=== PATIENT | female | born 2000 | race Caucasian/White ===

== ENCOUNTER 2023-01-02 10:02 | Emergency (ER) | payer OTHER ==
[2023-01-02 10:18] VITALS: BP 109/65; PULSE 60; RESP 18; TEMP 98
[2023-01-02 10:45] LABS: Basophils % (A) 1 %; Eosinophils # (A) 0.3 k/uL (0-0.7); Eosinophils % (A) 3 %; HCT 42.6 % (34.0-46.0); HGB 14.4 gm/dL (11.4-16.0); Lymphocytes # (A) 1.7 k/uL (1.0-4.8); Lymphocytes % (A) 23 %; MCH 32.4 pg (25.0-35.0); MCHC 33.9 g/dL (31.0-37.0); MCV 95.7 fL (80.0-100.0); Mean Platelet Volume 7.8; Monocytes # (A) 0.3 k/uL (0-1.0); Monocytes % (A) 4 %; Neutrophils # (A) 4.9 k/uL (1.3-7.7); Neutrophils % (A) 67 %; Platelet Count 197 k/uL (150-450); RBC 4.45 m/uL (3.80-5.40); RDW 12.6 % (11.5-15.5); WBC 7.3 k/uL (3.8-10.6)
[2023-01-02 11:09] LABS: ALT 16 U/L (4-34); AST 22 U/L (14-36); African American GFR (CKD) >90 (>60 ml/min/1.73 sqM); Albumin 4.6 g/dL (3.5-5.0); Alkaline Phosphatase 78 U/L (38-126); Anion Gap 9 mmol/L; Blood Urea Nitrogen 20 mg/dL (7-17); Calcium 9.3 mg/dL (8.4-10.2); Carbon Dioxide 24 mmol/L (22-30); Chloride 107 mmol/L (98-107); Glucose 99 mg/dL (74-99); Non-African American GFR(CKD) >90 (>60 ml/min/1.73 sqM); Potassium 4.1 mmol/L (3.5-5.1); Sodium 140 mmol/L (137-145); Total Bilirubin 0.5 mg/dL (0.2-1.3); Total Protein 7.4 g/dL (6.3-8.2)
--- NOTE | 2023-01-02 11:18 | ED ---
Abdominal Pain HPI - General Source: patient Mode of arrival: ambulatory <Darshan Aguilar - Last Filed: 01/02/23 11:18> - General Source: patient, RN notes reviewed, old records reviewed - History of Present Illness -: week(s) (1) Location: diffuse Radiation: back Severity scale (1-10): 0 Consistency: intermittent, now resolved Worsens With: eating Associated Symptoms: other (pale stools) <Owen Weaver - Last Filed: 01/02/23 16:45> - General Chief Complaint: Abdominal Pain Stated Complaint: abd pain Time Seen by Provider: 01/02/23 11:54 - History of Present Illness Initial Comments: 22-year-old female presents to ED with a chief complaint of abdominal pain. Patient states that she has had intermittent upper abdominal pain and nausea for the past 3 years recently worsening severity and frequency. Patient states that she feels these symptoms every time she eats. No urinary complaints. Quicknote performed, verbally signed Darshan Aguilar PA-C (Darshan Aguilar) This is a nontoxic-appearing 22-year-old female presents to the emergency room with diffuse abdominal pain on and off for the past 3 years. Patient states that over the past week it has been worse. States that when she eats she feels bloated. Also noticed that her stools have been pale. No fevers but does feel flushed. No concern for . No dysuria. No vaginal bleeding. At this time the pain has resolved. Denies any medical history. No medicines on a daily basis. (Owen Weaver) - Related Data Previous Rx's Medication Instructions Recorded Dicyclomine [Bentyl] 20 mg PO TID #30 tablet 01/02/23 Allergies Allergy/AdvReac Type Severity Reaction Status Date / Time No Known Allergies Allergy Verified 01/02/23 10:18 Review of Systems ROS Other: All systems not noted in ROS Statement are negative. <Darshan Aguilar - Last Filed: 01/02/23 11:18> ROS Other: All systems not noted in ROS Statement are negative. <Owen Weaver - Last Filed: 01/02/23 16:45> ROS Statement: Those systems with pertinent positive or pertinent negative responses have been documented in the HPI. Past Medical History Past Medical History: No Reported History History of Any Multi-Drug Resistant Organisms: None Reported Additional Past Surgical History / Comment(s): Nose Sx Past Psychological History: No Psychological Hx Reported Smoking Status: Never smoker Past Alcohol Use History: None Reported Past Drug Use History: Marijuana <LaurenAuroraDarshan - Last Filed: 01/02/23 11:18> General Exam Limitations: no limitations General appearance: alert, in no apparent distress Eye exam: Present: normal appearance Neck exam: Present: normal inspection Respiratory exam: Present: normal lung sounds bilaterally Cardiovascular Exam: Present: regular rate, normal rhythm Extremities exam: Present: normal inspection Back exam: Present: normal inspection Neurological exam: Present: alert, oriented X3 <LaurenDarshan - Last Filed: 01/02/23 11:18> General appearance: alert, in no apparent distress ENT exam: Present: mucous membranes moist Neck exam: Present: full ROM. Absent: tenderness, meningismus Respiratory exam: Absent: respiratory distress, accessory muscle use GI/Abdominal exam: Present: soft, normal bowel sounds. Absent: distended, tenderness, guarding, rebound, rigid Extremities exam: Present: normal capillary refill. Absent: pedal edema, calf t enderness Psychiatric exam: Present: normal affect, normal mood Skin exam: Present: warm, dry, normal color. Absent: cyanosis, diaphoretic, petechiae, pallor <Owen Weaver - Last Filed: 01/02/23 16:45> Course Vital Signs 01/02/23 10:13 Temperature 98 F Pulse Rate 60 Respiratory 18 Rate Blood Pressure 109/65 O2 Sat by Pulse 99 Oximetry Medical Decision Making - Lab Data Result diagrams: 01/02/23 10:31 01/02/23 10:31 <Darshan Aguilar - Last Filed: 01/02/23 11:18> - Lab Data Result diagrams: 01/02/23 10:31 01/02/23 10:31 <Owen Weaver - Last Filed: 01/02/23 16:45> - Medical Decision Making Was pt. sent in by a medical professional or institution (, PA, DRYWALL TAPER HELPER, urgent care, hospital, or group home...) When possible be specific @ -No Did you speak to anyone other than the patient for history (EMS, parent, family, police, friend...)? What history was obtained from this source @ -No Did you review nursing and triage notes (agree or disagree)? Why? @ -I reviewed and agree with nursing and triage notes Were old charts reviewed (outside hosp., previous admission, EMS record, old EKG, old radiological studies, urgent care reports/EKG's, group home records)? Report findings @ -No old charts were reviewed Differential Diagnosis (chest pain, altered mental status, abdominal pain women, abdominal pain men, vaginal bleeding, weakness, fever, dyspnea, syncope, headache, dizziness, GI bleed, back pain, seizure, CVA, palpatations, mental health, musculoskeletal)? @ -Differential Abdominal Pain Women: Appendicitis, Cholecystitis, diverticulosis, ischemic bowel, pancreatitis, hepatitis, UTI, gastroenteritis, AAA, incarcerated hernia, bowel obstruction, constipation, inflammatory bowel, hepatitis, peptic ulcer disease, splenic infarction, perforated viscus, vulvitis, ovarian torsion, PID, kidney stone, placenta abruption, this is not an all-inclusive list EKG interpreted by me (3pts min.). @ -n/a X-rays interpreted by me (1pt min.). @ -None done CT interpreted by me (1pt min.). @ -None done U/S interpreted by me (1pt. min.). @ -Ultrasound was considered however patient has no pain at this time. Ongoing for 3 years. Labs are unremarkable. Directed to follow up with gastroenterology. What testing was considered but not performed or refused? (CT, X-rays, U/S, labs)? Why? @ -None What meds were considered but not given or refused? Why? @ -None Did you discuss the management of the patient with other professionals (professionals i.e. , PA, DRYWALL TAPER HELPER, lab, RT, psych nurse, social services analyst, snowboarding instructor, teacher, tax revenue officer, case repairer)? Give summary @ -No Was smoking cessation discussed for >3mins.? @ -No Was critical care preformed (if so, how long)? @ -No Were there social determinants of health that impacted care today? How? (Homelessness, low income, unemployed, alcoholism, drug addiction, transportation, low edu. Level, literacy, decrease access to med. care, senior living, rehab)? @ -No Was there de-escalation of care discussed even if they declined (Discuss DNR or withdrawal of care, Hospice)? DNR status @ -No What co-morbidities impacted this encounter? (DM, HTN, Smoking, COPD, CAD, Cancer, CVA, ARF, Chemo, Hep., AIDS, mental health diagnosis, sleep apnea, morbid obesity)? @ -None Was patient admitted / discharged? Hospital course, mention meds given and route, prescriptions, significant lab abnormalities, going to OR and other pertinent info. @ -Discharged This is a nontoxic-appearing 22-year-old female presents to the emergency room with diffuse abdominal pain on and off for the past 3 years. Patient states that over the past week it has been worse. States that when she eats she feels bloated. Also noticed that her stools have been pale. No fevers but does feel flushed. No concern for . No dysuria. No vaginal bleeding. At this time the pain has resolved. Denies any medical history. No medicines on a daily basis. Vital signs are stable. Patient is afebrile. Abdomen soft and nontender. Bowel sounds are present. Labs show no evidence of leukocytosis. Hemoglobin and hematocrit are stable. Electrolytes are unremarkable. Urinalysis negative. No evidence of . Patient denies any dysuria. Patient was given IV fluids, Pepcid and Bentyl. She was given a prescription for Bentyl. She was instructed to follow-up with gastroenterology as her symptoms have been ongoing on and off for 3 years. She is agreeable to this plan of care. Case discussed with Dr. Ko Undiagnosed new problem with uncertain prognosis? @ -No Drug Therapy requiring intensive monitoring for toxicity (Heparin, Nitro, Insulin, Cardizem)? @ -No Were any procedures done? @ -No Diagnosis/symptom? @ -Abdominal pain, resolved Acute, or Chronic, or Acute on Chronic? @ -Acute on chronic Uncomplicated (without systemic symptoms) or Complicated (systemic symptoms)? @ -Uncomplicated Side effects of treatment? @ -No Exacerbation, Progression, or Severe Exacerbation? @ -No Poses a threat to life or bodily function? How? (Chest pain, [place], [place], pneumonia, PE, COPD, DKA, ARF, appy, cholecystitis, CVA, Diverticulitis, Homicidal, Suicidal, threat to staff... and all critical care pts) @ -No (Riske,Owen) - Lab Data Lab Results 01/02/23 01/02/23 01/02/23 Range/Units 10:31 10:31 10:31 WBC 7.3 (3.8-10.6) k/uL RBC 4.45 (3.80-5.40) m/uL Hgb 14.4 (11.4-16.0) gm/dL Hct 42.6 (34.0-46.0) % MCV 95.7 (80.0-100.0) fL MCH 32.4 (25.0-35.0) pg MCHC 33.9 (31.0-37.0) g/dL RDW 12.6 (11.5-15.5) % Plt Count 197 (150-450) k/uL MPV 7.8 Neutrophils % 67 % Lymphocytes % 23 % Monocytes % 4 % Eosinophils % 3 % Basophils % 1 % Neutrophils # 4.9 (1.3-7.7) k/uL Lymphocytes # 1.7 (1.0-4.8) k/uL Monocytes # 0.3 (0-1.0) k/uL Eosinophils # 0.3 (0-0.7) k/uL Basophils # 0.0 (0-0.2) k/uL Sodium 140 (137-145) mmol/L Potassium 4.1 (3.5-5.1) mmol/L Chloride 107 (98-107) mmol/L Carbon Dioxide 24 (22-30) mmol/L Anion Gap 9 mmol/L BUN 20 H (7-17) mg/dL Creatinine 0.69 (0.52-1.04) mg/dL Est GFR (CKD-EPI)AfAm >90 (>60 ml/min/1.73 sqM) Est GFR (CKD-EPI)NonAf >90 (>60 ml/min/1.73 sqM) Glucose 99 (74-99) mg/dL Calcium 9.3 (8.4-10.2) mg/dL Total Bilirubin 0.5 (0.2-1.3) mg/dL AST 22 (14-36) U/L ALT 16 (4-34) U/L Alkaline Phosphatase 78 (38-126) U/L Total Protein 7.4 (6.3-8.2) g/dL Albumin 4.6 (3.5-5.0) g/dL Amylase (30-110) U/L Lipase (23-300) U/L Urine Color Yellow Urine Appearance Cloudy H (Clear) Urine pH 7.0 (5.0-8.0) Ur Specific [place] 1.015 (1.001-1.035) Urine Protein Negative (Negative) Urine Glucose (UA) Negative (Negative) Urine Ketones Negative (Negative) Urine Blood Negative (Negative) Urine Nitrite Negative (Negative) Urine Bilirubin Negative (Negative) Urine Urobilinogen <2.0 (<2.0) mg/dL Ur Leukocyte Esterase Negative (Negative) Urine RBC 1 (0-5) /hpf Urine WBC 15 H (0-5) /hpf Ur Squamous Epith Cells 3 (0-4) /hpf Amorphous Sediment Rare H (None) /hpf Urine Mucus Occasional H (None) /hpf Urine HCG, Qual (Not Detectd) 01/02/23 01/02/23 Range/Units 10:31 10:31 WBC (3.8-10.6) k/uL RBC (3.80-5.40) m/uL Hgb (11.4-16.0) gm/dL Hct (34.0-46.0) % MCV (80.0-100.0) fL MCH (25.0-35.0) pg MCHC (31.0-37.0) g/dL RDW (11.5-15.5) % Plt Count (150-450) k/uL MPV Neutrophils % % Lymphocytes % % Monocytes % % Eosinophils % % Basophils % % Neutrophils # (1.3-7.7) k/uL Lymphocytes # (1.0-4.8) k/uL Monocytes # (0-1.0) k/uL Eosinophils # (0-0.7) k/uL Basophils # (0-0.2) k/uL Sodium (137-145) mmol/L Potassium (3.5-5.1) mmol/L Chloride (98-107) mmol/L Carbon Dioxide (22-30) mmol/L Anion Gap mmol/L BUN (7-17) mg/dL Creatinine (0.52-1.04) mg/dL Est GFR (CKD-EPI)AfAm (>60 ml/min/1.73 sqM) Est GFR (CKD-EPI)NonAf (>60 ml/min/1.73 sqM) Glucose (74-99) mg/dL Calcium (8.4-10.2) mg/dL Total Bilirubin (0.2-1.3) mg/dL AST (14-36) U/L ALT (4-34) U/L Alkaline Phosphatase (38-126) U/L Total Protein (6.3-8.2) g/dL Albumin (3.5-5.0) g/dL Amylase 54 (30-110) U/L Lipase 61 (23-300) U/L Urine Color Urine Appearance (Clear) Urine pH (5.0-8.0) Ur Specific [place] (1.001-1.035) Urine Protein (Negative) Urine Glucose (UA) (Negative) Urine Ketones (Negative) Urine Blood (Negative) Urine Nitrite (Negative) Urine Bilirubin (Negative) Urine Urobilinogen (<2.0) mg/dL Ur Leukocyte Esterase (Negative) Urine RBC (0-5) /hpf Urine WBC (0-5) /hpf Ur Squamous Epith Cells (0-4) /hpf Amorphous Sediment (None) /hpf Urine Mucus (None) /hpf Urine HCG, Qual Not Detected (Not Detectd) Disposition <Darshan Agiular - Last Filed: 01/02/23 11:18> Is patient prescribed a controlled substance at d/c from ED?: No Time of Disposition: 14:21 <Owen Weaver - Last Filed: 01/02/23 16:45> Clinical Impression: Abdominal pain Disposition: HOME SELF-CARE Condition: Good Instructions (If sedation given, give patient instructions): Abdominal Pain (ED) Additional Instructions: Follow-up with Dr. Whitmore photovoltaic technician. Take Bentyl 20mg three times a day. Keep a diary of your symptoms including when they occur, what you were eating, and any associated symptoms including nausea vomiting or fevers. Return to the emergency room with no concerning symptoms including increased pain or persistent nausea vomiting. Prescriptions: Dicyclomine [Bentyl] 20 mg PO TID #30 tablet Referrals: None,Stated [Primary Care Provider] - 1-2 days
[2023-01-02 11:46] LABS: Amorphous Sediment,Urine Rare /hpf; Mucus,Urine Occasional /hpf; RBC,Urine 1 /hpf (0-5); Squamous Epithelial Cell,Urine 3 /hpf (0-4); WBC,Urine 15 /hpf (0-5)
[2023-01-02 11:50] LABS: Appearance,Urine Cloudy (Clear); Bilirubin,Urine Negative (Negative); Blood,Urine Negative (Negative); Color,Urine Yellow; Glucose,Urine (UA) Negative (Negative); Ketones,Urine Negative (Negative); Protein,Urine Negative (Negative); Specific Gravity,Urine 1.015 (1.001-1.035)
[2023-01-02 11:51] LABS: Urobilinogen,Urine <2.0 mg/dL (<2.0)
[2023-01-02 11:52] LABS: Leukocyte Esterase,Urine Negative (Negative); Nitrite,Urine Negative (Negative)
[2023-01-02] MEDS ORDERED: SODIUM CHLORIDE 0.9% 1,000 ML IV ONE (12:09)
[2023-01-02] MEDS ORDERED: FAMOTIDINE 20 MG/2 ML VIAL IV STA (12:10)
[2023-01-02] MEDS ORDERED: DICYCLOMINE 20 MG TAB PO STA (12:10)
[2023-01-02 13:55] LABS: Amylase 54 U/L (30-110); Lipase 61 U/L (23-300)
== END 2023-01-02 14:46 | disposition home or self-care (01) ==
LOC: EC 10:02
DX: R10.10 Upper abdominal pain, unspecified (principal); F12.90 Cannabis use, unspecified, uncomplicated
CPT/HCPCS: 36415; 80053; 81001; 81025; 82150; 83690; 85025; 96361; 96374; 99284

== ENCOUNTER 2023-11-06 09:31 | Outpatient (CLI) | payer OTHER ==
[2023-11-06 10:36] VITALS: BP 107/59; PULSE 89; RESP 16; TEMP 98.2
--- NOTE | 2023-11-15 12:31 | P.MSEPDOC ---
Presenting Problems - Arrival Data Date of Arrival on Unit: 11/06/23 Time of Arrival on Unit: 09:31 Mode of Transport: Ambulatory - Complaint OB-Reason for Admission/Chief Complaint: Decreased Movement Medical History - Information : 1 Para: 0 Term: 0 : 0 Abortions: Spontaneous or Elective: 0 Number of Living Children: 0 - Gestational Age Gestational Age by MANDY (wks/days): 25 Weeks and 5 Days Review of Systems - Review of Systems Constitutional: No problems Breast: No problems ENT: No problems Cardiovascular: No problems Respiratory: No problems Gastrointestinal: No problems Genitourinary: No problems Musculoskeletal: No problems Neurological: No problems Skin: No problems Vital Signs - Temperature Temperature: 98.2 F Temperature Source: Temporal Artery Scan - Pulse Right Sitting Pulse Rate: 89 Pulse Assessment Method: Automatic Cuff - Respirations Respiratory Rate: 16 Oxygen Delivery Method: Room Air O2 Sat by Pulse Oximetry: 98 - Blood Pressure Right Arm Blood Pressure: 107/59 Blood Pressure Mean: 75 Blood Pressure Source: Automatic Cuff Medical Screen Scoring - Assessment - Baby A Baseline FHR: 145 Heart Rate - NICHD Category: Category I (Normal) Physician Notification - Physician Notified Physician Notified Date: 11/06/23 Physician Notified Time: 10:20 Physician: Candice Eric New Order Received: Yes (D/C home) Maternal Triage Index - Urgent/Priority 2 Urgent Priority 2: Yes Provider Notified: Candice Eric Provider Notified Time: 10:20 Criteria Met for Priority 2: c/o decreaesd movement, category 1 FHT for gestation, pt has felt movement in triage, no contractions Disposition - Disposition OB Disposition: Discharge to home Discharge Date: 11/06/23 Discharge Time: 10:20 I agree with the RN Medical Screening Exam: Yes Case reviewed; plan agreed upon as documented in EMR&OBIX.: Yes Diagnosis: DECREASED MOVEMENTS, SECOND TRIMESTER, FETUS 1
== END 2023-11-06 10:29 | disposition home or self-care (01) ==
LOC: FBPOP 09:31
PROVIDERS: ATTEND Obstetrics & Gynecology Obstetrics
DX: O36.8121 Decreased fetal movements, second trimester, fetus 1 (principal); Z3A.25 25 weeks gestation of pregnancy
CPT/HCPCS: 99213

== ENCOUNTER 2024-02-22 00:31 | Outpatient (CLI) | payer BC, OTHER ==
[2024-02-22 02:58] VITALS: BP 120/68; PULSE 65; RESP 16
--- NOTE | 2024-03-28 02:18 | P.MSEPDOC ---
Presenting Problems - Arrival Data Date of Arrival on Unit: 02/22/24 Time of Arrival on Unit: 00:31 Mode of Transport: Ambulatory - Complaint OB-Reason for Admission/Chief Complaint: Possible Onset of Labor Comment: Patient presents to triage with complaints of contractions starting around 2300 on 02/21/2024 rating with with contractions 6/10. Contractions coming every 5-10 minutes. Medical History - Information : 1 Para: 0 Term: 0 : 0 Abortions: Spontaneous or Elective: 1 Number of Living Children: 0 - Gestational Age Gestational Age by MANDY (wks/days): 40 Weeks and 1 Days Review of Systems - Review of Systems Constitutional: No problems Breast: No problems ENT: No problems Cardiovascular: No problems Respiratory: No problems Gastrointestinal: No problems Genitourinary: No problems Musculoskeletal: No problems Neurological: No problems Skin: No problems Vital Signs - Pulse Pulse Oximetery Pulse Rate: 65 Pulse Assessment Method: Pulse Oximetry - Respirations Respiratory Rate: 16 Oxygen Delivery Method: Room Air O2 Sat by Pulse Oximetry: 96 - Blood Pressure Right Arm Blood Pressure: 120/68 Blood Pressure Mean: 85 Blood Pressure Source: Automatic Cuff Medical Screen Scoring - Cervical Exam Dilation (cm): 1.5 Effacement (%): 70 Station: -2 Membranes: Intact - Uterine Contractions Frequency From (mins): 4 Frequency To (mins): 6 Duration From (seconds): 40 Duration To (seconds): 80 Intensity: Moderate Resting: Soft to palpation - Assessment - Baby A Baseline FHR: 135 Heart Rate - NICHD Category: Category I (Normal) NST: Reactive Physician Notification - Physician Notified Physician Notified Date: 02/22/24 Physician Notified Time: 02:15 Physician: Nixon Sutton Order Received: No (Discharge home) - Notification Comment Comment: RN reports on patient complaint of contractions starting at 2300 on 02/21/2024 about every 5-10 minutes with pain rating 6/10. 40 1/7 GA, Stable VS, reactive NST cat I HT, cervical exam upon arrival 1.5/70-80/-2, and unchanged cervical exam after one hour. Contractions on TOCO every 4-6 minutes, patient breathing through them. RN let Dr. Sutton know that patients mother stated "they don't know you, you'll be back in a couple of hours" Dr. Mckeon orders discharge r/t unchanged cervical exam after one hour. Maternal Triage Index - Maternal Triage Index Presenting for scheduled procedure w/no complaint: No - Stat/Priority 1 Stat Priority 1: No - Urgent/Priority 2 Urgent Priority 2: No - Prompt/Priority 3 Prompt Priority 3: No - Non-Urgent/Priority 4 Non-Urgent Priority 4: Yes Criteria Met for Priority 4: RN reports on patient complaint of contractions starting at 2300 on 02/21/2024 about every 5-10 minutes with pain rating 6/10. 40 1/7 GA, Stable VS, reactive NST cat I HT, cervical exam upon arrival 1.5/70-80/-2, and unchanged cervical exam after one hour. Contractions on TOCO every 4-6 minutes, patient breathing through them. Disposition - Disposition OB Disposition: Discharge to home Discharge Date: 02/22/24 Discharge Time: 02:32 I agree with the RN Medical Screening Exam: Yes Physician's MSE Comment: I have neither seen nor examined the patient. Case reviewed; plan agreed upon as documented in EMR&OBIX.: Yes Diagnosis: RELATED CONDITIONS, UNSPECIFIED, THIRD TRIMESTER
== END 2024-02-22 02:32 | disposition home or self-care (01) ==
LOC: FBPOP 00:31
PROVIDERS: ATTEND Obstetrics & Gynecology
CPT/HCPCS: 59025; 99213

== ENCOUNTER 2024-02-22 07:53 | Inpatient (IN) | payer BC, OTHER ==
[2024-02-22] MEDS ORDERED: TRANEXAMIC 1,000 MG/100ML-NACL 1,000 MG in EMPTY BAG 1 BAG IV PRN (08:12)
[2024-02-22] MEDS ORDERED: CARBOPROST TROMETHAMINE 250 MCG/ML 1 ML AMP IM PRN (08:12)
[2024-02-22] MEDS ORDERED: LIDOCAINE 0.5% (PF) 5 MG/ML (50 ML SDV) SQ PRN (08:12)
[2024-02-22] MEDS ORDERED: OXYTOCIN 10 UNIT/ML 1 ML VIAL IM PRN (08:12)
[2024-02-22] MEDS ORDERED: TERBUTALINE 1 MG/ML VIAL SQ PRN (08:12)
[2024-02-22] MEDS ORDERED: miSOPROStoL 200 MCG TAB RECTAL PRN (08:12)
[2024-02-22] MEDS ORDERED: miSOPROStoL 200 MCG TAB PO PRN (08:12)
[2024-02-22] MEDS ORDERED: METHYLERGONOVINE 0.2 MG/ML 1 ML AMP IM PRN (08:12)
[2024-02-22] MEDS: PENICILLIN G POTASSIUM 5,000,000 UNIT in DEXTROSE 5% IN WATER 100 ML IVPB STA (08:33)
[2024-02-22] MEDS: LACTATED RINGERS 1,000 ML IV SCH (08:34)
[2024-02-22] MEDS ORDERED: fentaNYL (PF) 50 MCG/ML 5 ML AMP ONE (08:40)
[2024-02-22] MEDS ORDERED: SODIUM CHLORIDE 0.9% 250 ML BAG ONE (08:40)
[2024-02-22] MEDS ORDERED: ROPIVACAINE 5 MG/ML 30 ML VIAL ONE (08:40)
[2024-02-22 09:07] LABS: Basophils % (A) 0 %; Eosinophils % (A) 0 %; HGB 12.5 gm/dL (11.4-16.0); Lymphocytes % (A) 10 %; MCH 31.3 pg (25.0-35.0); MCHC 33.8 g/dL (31.0-37.0); MCV 92.3 fL (80.0-100.0); Mean Platelet Volume 8.4; Monocytes # (A) 0.2 k/uL (0-1.0); Monocytes % (A) 2 %; Neutrophils # (A) 8.7 k/uL (1.3-7.7); Neutrophils % (A) 87 %; Platelet Count 205 k/uL (150-450); RBC 4.01 m/uL (3.80-5.40); RDW 15.6 % (11.5-15.5)
--- NOTE | 2024-02-22 11:54 | P.HPOB ---
History of Present Illness H&P Date: 02/22/24 Chief Complaint: 40 and 1 sevenths weeks, active labor The patient is a 23-year-old 2 para 0-0-1-0 admitted at 40 and 1 sevenths weeks as established by early ultrasound. She is admitted in active labor with all signs reassuring, category 1 heart rate tracing. Her has been entirely uncomplicated though she is known to be group B strep positive. Obstetrical history: 2 para 0-0-1-0 with current statistics listed in history of present illness. EDC of 02/21/2024 was established by early ultrasound. Laboratory workup demonstrates a blood type of AB+ with a negative antibody screen. Rubella status is immune. The remainder of the laboratory workup was within normal limits. Early Glucola was normal as was second trimester Glucola. Group B strep status is positive. Gynecologic history: Unremarkable with no history of any infections to include STDs. Review of Systems Review of systems is confined to history of present illness. Past Medical History Past Medical History: No Reported History Additional Past Medical History / Comment(s): MTHFR History of Any Multi-Drug Resistant Organisms: None Reported Additional Past Surgical History / Comment(s): Nose Sx Past Anesthesia/Blood Transfusion Reactions: No Reported Reaction Past Psychological History: No Psychological Hx Reported Smoking Status: Never smoker Past Alcohol Use History: None Reported Past Drug Use History: Marijuana Additional Drug Use History / Comment(s): prior to - Past Family History Mother Family Medical History: No Reported History Medications and Allergies Home Medications Medication Instructions Recorded Confirmed Type Aspirin [Adult Low Dose Aspirin EC] 81 mg PO DAILY 11/06/23 02/22/24 History Vit No.179/Iron/Folic 1 each PO DAILY 11/06/23 02/22/24 History [ Tablet] Allergies Allergy/AdvReac Type Severity Reaction Status Date / Time No Known Allergies Allergy Verified 02/22/24 07:58 Exam Vital Signs Temp Pulse Resp BP Pulse Ox 02/22/24 09:50 97.7 F 72 18 129/59 99 Intake and Output 02/21/24 02/22/24 02/22/24 22:59 06:59 14:59 Other: Weight 82.554 kg In general, there is a well-developed well-nourished female in no acute distress. Her heart has a regular rhythm and rate without murmur. Her lungs are clear to auscultation bilaterally in all mosqueda. Her abdomen is gravid, nondistended, has normal active bowel sounds, soft, nontender, and without any p alpable masses aside from uterine fundus. Her extremities are without any cyanosis, clubbing, or edema and are nontender to palpation bilaterally. Digital cervical examination at the time of her admission demonstrates the cervix to be 6 cm dilated, 100% effaced with the vertex and presentation at -1 station. Membranes are still intact. Results Result Diagrams: 02/22/24 08:30 Abnormal Lab Results - Last 24 Hours (Table) 02/22/24 Range/Units 08:30 RDW 15.6 H (11.5-15.5) % Neutrophils # 8.7 H (1.3-7.7) k/uL Assessment and Plan (1) Post-dates Current Visit: Yes Status: Acute Code(s): O48.0 - POST-TERM SNOMED Code(s): 16969076 (2) Active labor at term Current Visit: Yes Status: Acute Code(s): BYH3846 - SNOMED Code(s): 3587 4009 (3) Mother positive for group B Streptococcus colonization Current Visit: Yes Status: Acute Code(s): P00.82 - NB AFF BY (POSITIVE) MATERN GROUP B STREP (GBS) COLONIZATION SNOMED Code(s): 70654312817168 Plan: The patient is admitted for active management of labor. As she has group B strep colonization, the membranes will be left intact for as long as possible and thus delivery is eminent. At 4 hours post antibiotics, artificial rupture of membranes will be carried out and we will proceed with delivery in a more active fashion. She will have close maternal and surveillance and expectant management will be practiced. She has an epidural catheter placed for analgesia.
[2024-02-22] MEDS: PENICILLIN G POTASSIUM 2,500,000 UNIT in DEXTROSE 5% IN WATER 100 ML IVPB SCH (13:02)
[2024-02-22] MEDS ORDERED: SIMETHICONE 80 MG CHEWABLE PO PRN (16:18)
[2024-02-22] MEDS ORDERED: LANOLIN CREAM 1 GM TUBE TOPICAL PRN (16:18)
[2024-02-22] MEDS ORDERED: ZOLPIDEM 5 MG TAB PO PRN (16:18)
[2024-02-22] MEDS ORDERED: HYDROcodone/APAP 5-325MG 1 EACH TAB PO PRN (16:18)
[2024-02-22] MEDS ORDERED: diphenhydrAMINE 50 MG CAP PO PRN (16:18)
[2024-02-22] MEDS ORDERED: HYDROcodone/APAP 7.5-325MG 1 EACH TAB PO PRN (16:18)
[2024-02-22] MEDS ORDERED: diphenhydrAMINE 50 MG/ML 1 ML VIAL IVP PRN ×2 (16:18)
[2024-02-22] MEDS ORDERED: diphenhydrAMINE 25 MG CAP PO PRN (16:18)
[2024-02-22] MEDS ORDERED: BENZOCAINE/MENTHOL SPRAY 1 GM/SPRAY AEROSOL TOPICAL PRN (16:18)
[2024-02-22] MEDS ORDERED: HYDROCORTISONE 2.5% RECTAL CREAM 30 GM TUBE RECTAL PRN (16:18)
--- NOTE | 2024-02-22 16:22 | P.PROBDLV ---
Vaginal Delivery Note - . Vaginal Delivery Note: The patient is a 23-year-old 2 para 0-0-1-0 admitted at 40-2/7 weeks by good dating parameters. She is admitted in active labor with all signs reassuring, category 1 heart rate tracing. Her was essentially uncomplicated though she is group B strep positive. She arrived at 6 cm of dilation with her membranes intact. Antibiotic prophylaxis was started and artificial rupture of membranes was delayed for 4 hours to achieve levels of antibiotic. An epidural catheter was placed for analgesia while she waited. She had excellent relief from the epidural. She then underwent artificial rupture of membranes for clear fluid. She then required Pitocin augmentation and then progressed over the next hour or 2 to complete and +2 station. She pushed over the course of approximately 20 minutes to a normal spontaneous vaginal delivery of a 8 pound 2.3 ounce baby girl with Apgars of 9 at 1 minute and 9 at 5 minutes delivered in the direct occiput anterior position. The placenta was delivered spontaneously, intact, and grossly normal with a grossly normal relatively centrally inserted three-vessel cord. There was a very small central midline perineal laceration with bilateral first-degree labial extensions. These were repaired in standard fashion with 3-0 chromic catgut, the labial lacerations were repaired with running subcuticular stitch of 3-0 chromic catgut for relative reapproximation. Estimated blood loss for the rashidr e case was approximately 150 mL. There were no complications. All sponge, instrument, and needle counts were correct. Both mother and are resting comfortably in recovery.
[2024-02-22] MEDS ORDERED: OXYTOCIN 30 UNITS/500 ML NS 30 UNIT in SALINE 1 500ML.BAG IV SCH (16:30)
[2024-02-22] MEDS: ACETAMINOPHEN TAB 325 MG TAB PO PRN (17:10)
[2024-02-22 19:14] VITALS: RESP 16
[2024-02-22] MEDS: SENNOSIDES-DOCUSATE SODIUM 1 EACH TAB PO SCH (20:11)
[2024-02-23 06:49] LABS: Basophils % (A) 0 %; Eosinophils % (A) 0 %; HCT 34.2 % (34.0-46.0); HGB 11.3 gm/dL (11.4-16.0); Lymphocytes # (A) 1.3 k/uL (1.0-4.8); Lymphocytes % (A) 14 %; MCH 31.4 pg (25.0-35.0); MCHC 32.9 g/dL (31.0-37.0); MCV 95.2 fL (80.0-100.0); Mean Platelet Volume 8.4; Monocytes # (A) 0.3 k/uL (0-1.0); Monocytes % (A) 4 %; Neutrophils # (A) 7.4 k/uL (1.3-7.7); Neutrophils % (A) 80 %; Platelet Count 183 k/uL (150-450); RBC 3.59 m/uL (3.80-5.40); RDW 15.4 % (11.5-15.5); WBC 9.3 k/uL (3.8-10.6)
--- NOTE | 2024-02-23 08:03 | P.DS ---
Providers Date of admission: 02/22/24 08:31 Expected date of discharge: 02/23/24 Attending physician: Ludy Cedeño Primary care physician: Stated None - Discharge Diagnosis(es) (1) Active labor at term Current Visit: Yes Status: Acute (2) Mother positive for group B Streptococcus colonization Current Visit: Yes Status: Acute (3) Normal spontaneous vaginal delivery Current Visit: Yes Status: Acute (4) Perineal laceration during delivery Current Visit: Yes Status: Acute (5) Post-dates Current Visit: Yes Status: Acute Hospital Course: This is a 23 G2 now P1011 that presented to labor and delivery in active labor on 02/21. She has been receiving routine care with myself. Patient presented to labor and delivery in active labor. Patient was admitted, antibiotics were begun for GBS positive rectovaginal culture. Patient did request epidural. Epidural was placed without difficulty by the anesthesia department. Patient made good progress toward complete. Patient began pushing and had a normal spontaneous vaginal delivery of a viable female at 1552, weight of 8 pounds 2.3 ounces. Patient did sustain a second-degree midline laceration. Patient's course has been uneventful. In this post day #1 she is ambulating and voiding without difficulty. She is tolerating a regular diet without nausea or vomiting. She states her pain is well-controlled. Patient Condition at Discharge: Good Plan - Discharge Summary New Discharge Prescriptions: No Action Vit No.179/Iron/Folic [ Tablet] 1 each PO DAILY Aspirin [Adult Low Dose Aspirin EC] 81 mg PO DAILY Discharge Medication List Aspirin [Adult Low Dose Aspirin EC] 81 mg PO DAILY 11/06/23 [History] Vit No.179/Iron/Folic [ Tablet] 1 each PO DAILY 11/06/23 [History] Follow up Appointment(s)/Referral(s): Ludy Cedeño DO [Doctor of Osteopathic Medicine] - 6 Weeks Patient Instructions/Handouts: Vaginal Delivery (GEN), Vaginal Delivery (DC) Activity/Diet/Wound Care/Special Instructions: No intercourse, tampons or tub baths. No driving for two weeks. Call with any fever, shakes or chills, with any pain not alleviated by over the counter meds, or with any questions or concerns. Yakf-occ-yvlewhw ibuprofen 600 mg or 3 tablets every 6 hours as needed for pain. Discharge Disposition: HOME SELF-CARE
[2024-02-23] MEDS: IBUPROFEN 600 MG TAB PO PRN (08:17)
[2024-02-23 16:39] VITALS: BP 131/77; PULSE 90; TEMP 98
== END 2024-02-23 17:15 | disposition home or self-care (01) | DRG 807 ==
LOC: FBPOP 07:53 → 4FBP 08:31
PROVIDERS: ADMIT Obstetrics & Gynecology; ATTEND Obstetrics & Gynecology Obstetrics
PROC: 10E0XZZ Delivery of Products of Conception, External Approach (ICD-10-PCS; principal; 2024-02-22)
PROC: 0KQM0ZZ Repair Perineum Muscle, Open Approach (ICD-10-PCS; 2024-02-22)
PROC: 10907ZC Drainage of Amniotic Fluid, Therapeutic from Products of Conception, Via Natural or Artificial Opening (ICD-10-PCS; 2024-02-22)
DX: O48.0 Post-term pregnancy (principal); Z37.0 Single live birth; O70.1 Second degree perineal laceration during delivery; O70.0 First degree perineal laceration during delivery; O90.1 Disruption of perineal obstetric wound; Z3A.40 40 weeks gestation of pregnancy
CPT/HCPCS: 59025; 85025; 86850; 86900; 86901; 99213

== ENCOUNTER 2024-07-26 17:21 | Emergency (ER) | payer BC, OTHER ==
[2024-07-26 18:01] VITALS: TEMP 98.2
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
[2024-07-26 20:53] VITALS: BP 142/84; PULSE 72; RESP 18
== END 2024-07-26 20:40 | disposition home or self-care (01) ==
LOC: EC 17:21
DX: T59.811A Toxic effect of smoke, accidental (unintentional), initial encounter (principal)
CPT/HCPCS: 82375; 99283